=== PATIENT | female | born 1995 | race Caucasian/White ===

== ENCOUNTER 2017-01-22 08:33 | Emergency (ER) | payer SELFPAY ==
[2017-01-22 08:51] VITALS: BP 113/71
--- NOTE | 2017-01-22 09:05 | UC ---
Complaint Female HPI - HPI Summary HPI Summary: 21 female presents with complaints of urinary frequency, urgency and blood in urine that has been ongoing for the past 2-3 days and seemed to worsening today. Has not been swimming. Has had UTI's in the past. Admits to lower abdominal pressure, discomfort and bloating. Denies back pain, nausea, vomiting , and fever/chills. Has not taken any medications. Denies any other PMHx. Denies genitalia symptoms. Denies . LMP: 01/15/17. Currently taking OCP. - History Of Current Complaint Chief Complaint: UCGU Stated Complaint: URINARY COMPLAINT Time Seen by Provider: 01/22/17 08:51 Hx Obtained From: Patient Hx Last Menstrual Period: 01/15/17 Onset/Duration: Sudden Onset, Lasting Days - 2-3, Still Present Timing: Intermittent - upon urination Severity Initially: Mild Severity Currently: Moderate Pain Intensity: 7 Pain Scale Used: 0-10 Numeric - pressure Radiates to: none Character: Dull - pressure Aggravating Factor(s): Urination Alleviating Factor(s): Nothing Associated Signs And Symptoms: Negative: Fever, Back Pain, Vaginal Bleeding/ Discharge, Vaginal Discharge, Nausea - Allergies/Home Medications Allergies/Adverse Reactions: Allergies Allergy/AdvReac Type Severity Reaction Status Date / Time No Known Allergies Allergy Verified 01/22/17 08:51 PMH/Surg Hx/FS Hx/Imm Hx - Additional Past Medical History Additional PMH: Denies diabetes, HTN and asthma. No known PMHx. Currently taking OCP. - Surgical History Surgical History: Yes Surgery Procedure, Year, and Place: [facility] - Family History Known Family History: Positive: None - Social History Alcohol Use: None Substance Use Type: None Smoking Status (MU): Never Smoked Tobacco - Immunization History Vaccination Up to Date: Yes Review of Systems Constitutional: Negative Skin: Negative Respiratory: Negative Cardiovascular: Negative Gastrointestinal: Abdominal Pain - "suprapubic pressure/bloating" Genitourinary: Dysuria, Hematuria, Frequency, Urgency, Other - hematuria All Other Systems Reviewed And Are Negative: Yes Physical Exam Triage Information Reviewed: Yes Appearance: Well-Appearing, No Pain Distress, Well-Nourished Vital Signs: Initial Vital Signs Temp 98.3 F 01/22/17 08:46 Pulse 68 01/22/17 08:46 Resp 14 01/22/17 08:46 BP 113/71 01/22/17 08:46 Pulse Ox 100 01/22/17 08:46 Vital Signs Reviewed: Yes Eyes: Positive: Conjunctiva Clear ENT: Positive: Normal ENT inspection, Hearing grossly normal Neck: Positive: Supple, Nontender Respiratory: Positive: Chest non-tender, Lungs clear, Normal breath sounds, No respiratory distress, No accessory muscle use. Negative: Crackles, Rhonchi, Stridor, Wheezing Cardiovascular: Positive: RRR, No Murmur, Pulses Normal, Brisk Capillary Refill Abdomen Description: Positive: Nontender, No Organomegaly, Soft. Negative: Bruit, CVA Tenderness (R), CVA Tenderness (L), Distended, Guarding, McBurney's Point Tenderness, Peritoneal Signs, Pulsatile Mass Bowel Sounds: Positive: Present Musculoskeletal: Positive: Strength Intact, ROM Intact, No Edema Neurological: Positive: Alert Psychological Exam: Normal Skin Exam: Normal Complaint Female Dx - Course Course Of Treatment: urinalysis obtained and positive for nitrate, luek esterase and blood. will be cultured. given pyridium for discomfort and bactrim. aware of worsening signs and symptoms. drink plenty of fluids. good hygiene, discussed urinating after intercourse. denied pregnany and genitalia symptoms so pelvic exam deferred. Follow up PCP. - Differential Dx/Diagnosis Differential Diagnosis/HQI/PQRI: Sexually Transmitted Disease, Ureteral Stone, Urinary Tract Infection, Other Provider Diagnoses: UTI Discharge - Discharge Plan Condition: Stable Disposition: HOME Prescriptions: Phenazopyridine TAB* [Pyridium 100 mg TAB*] 200 mg PO TID #12 tab Sulfamethox/Trimethoprim DS* [Bactrim DS 800/160 TAB*] 1 tab PO BID #10 tab Patient Education Materials: Urinary Tract Infection in Women (ED) Referrals: Non Staff,Doctor [Primary Care Provider] - Additional Instructions: Take prescribed antibiotic as directed. You may discontinue use if your symptoms have improved after 3 days. If symptoms persist please continue all 5 days. If there is a better antibiotic, you will be called and it will be changed pending culture results. Take Pyridium for bladder discomfort. Recommend taking after meals. This may make your urine turn an orange, neon color, this is normal. Drink plenty of fluids and maintain good hygiene. Follow up with PCP. If symptoms worsen such as fever/chills, increasing abdominal pain, back pain, worsening symptoms and feeling ill please return promptly.
== END 2017-01-22 09:25 | disposition home or self-care (01) ==
LOC: UCCORT 08:33
DX: N39.0 Urinary tract infection, site not specified (principal); R31.9 Hematuria, unspecified; Z87.440 Personal history of urinary (tract) infections
CPT/HCPCS: 81003; 87077; 87086; 87186; 99212; G0463

== ENCOUNTER 2017-02-02 07:50 | Emergency (ER) | payer BC, OTHER ==
[2017-02-02 08:10] VITALS: BP 106/66
--- NOTE | 2017-02-02 08:18 | UC ---
Complaint Female HPI - HPI Summary HPI Summary: burning with urination x 2 days was seen here at the urgent care 10 days ago was treated for uti with bactrim dc sx returned 2 days ago with burning on urination , frequency , no fever, no chills, no flank pain - History Of Current Complaint Chief Complaint: UCGU Stated Complaint: URINARY COMPLAINT Time Seen by Provider: 02/02/17 07:55 Hx Obtained From: Patient Hx Last Menstrual Period: 01/15/17 Onset/Duration: Gradual Onset, Lasting Days - 2, Still Present Timing: Constant Severity Initially: Moderate Severity Currently: Moderate Character: Burning Aggravating Factor(s): Urination Alleviating Factor(s): Nothing Associated Signs And Symptoms: Negative: Fever, Back Pain, Vaginal Bleeding/ Discharge, Vaginal Discharge, Nausea, Vomiting(# Of Episodes =), Genital Swelling, Genital Blisters - Allergies/Home Medications Allergies/Adverse Reactions: Allergies Allergy/AdvReac Type Severity Reaction Status Date / Time No Known Allergies Allergy Verified 02/02/17 08:05 PMH/Surg Hx/FS Hx/Imm Hx Previously Healthy: Yes - Surgical History Surgical History: Yes Surgery Procedure, Year, and Place: [facility] - Family History Known Family History: Positive: None Negative: Diabetes - Social History Alcohol Use: None Substance Use Type: None Smoking Status (MU): Never Smoked Tobacco - Immunization History Vaccination Up to Date: Yes Review of Systems Constitutional: Negative Skin: Negative Eyes: Negative ENT: Negative Respiratory: Negative Cardiovascular: Negative Gastrointestinal: Negative Genitourinary: Dysuria, Frequency All Other Systems Reviewed And Are Negative: Yes Physical Exam Triage Information Reviewed: Yes Appearance: Well-Appearing, No Pain Distress, Well-Nourished Vital Signs: Initial Vital Signs Temp 98.2 F 02/02/17 08:05 Pulse 57 02/02/17 08:05 Resp 14 02/02/17 08:05 BP 106/66 02/02/17 08:05 Pulse Ox 100 02/02/17 08:05 Vital Signs Reviewed: Yes Eyes: Positive: Conjunctiva Clear ENT: Positive: Normal ENT inspection, Hearing grossly normal, Pharynx normal Neck: Positive: Supple, Nontender, No Lymphadenopathy Respiratory: Positive: Chest non-tender, Lungs clear, Normal breath sounds Cardiovascular: Positive: RRR, No Murmur, Pulses Normal Abdomen Description: Positive: Nontender, Soft. Negative: CVA Tenderness (R), CVA Tenderness (L), Distended, Guarding Bowel Sounds: Positive: Present Complaint Female Dx - Differential Dx/Diagnosis Provider Diagnoses: UTI Discharge - Discharge Plan Condition: Stable Disposition: HOME Prescriptions: Sulfamethox/Trimethoprim DS* [Bactrim DS 800/160 TAB*] 1 tab PO BID #14 tab Patient Education Materials: Urinary Tract Infection in Women (ED) Referrals: Non Staff,Doctor [Primary Care Provider] - If Needed
== END 2017-02-02 08:36 | disposition home or self-care (01) ==
LOC: UCCORT 07:50
DX: N39.0 Urinary tract infection, site not specified (principal)
CPT/HCPCS: 81003; 87086; 99212; G0463

== ENCOUNTER 2017-10-11 09:11 | Emergency (ER) | payer BC ==
[2017-10-11 09:41] VITALS: BP 140/64
--- NOTE | 2017-10-11 10:05 | UC ---
Throat Pain/Nasal Shaun HPI - HPI Summary HPI Summary: FEVER X 3 WEEKS + COUGH , SORE THROAT, NASAL CONGESTION + VOMITING, DIARRHEA , MILD ABDOMINAL PAIN FATIGUE, BODY ACHES WAS SEEN BY HER PCP / R/O UTIS AND KIDNEY INFECTION - History of Current Complaint Chief Complaint: UCGeneralIllness Stated Complaint: FLU SYMPTOMS Time Seen by Provider: 10/11/17 09:49 Hx Obtained From: Patient Hx Last Menstrual Period: 10/01/17 ?: No Onset/Duration: Gradual Onset, Lasting Weeks - 3, Still Present Severity: Severe Pain Intensity: 7 Cough: Nonproductive Associated Signs & Symptoms: Positive: Nasal Discharge, Fever. Negative: Drooling, Wheezing, Hoarseness, Sinus Discomfort, Rash - Allergies/Home Medications Allergies/Adverse Reactions: Allergies Allergy/AdvReac Type Severity Reaction Status Date / Time Sulfa (Sulfonamide Allergy Anaphylatic Verified 10/11/17 09:27 Antibiotics) Shock Home Medications: Home Medications Cholecalciferol TAB* [Vitamin D TAB*] 1,000 unit PO DAILY 10/11/17 [History Confirmed 10/11/17] Naproxen Sodium [Aleve] 440 mg PO DAILY PRN 10/11/17 [History Confirmed 10/11/17 ] PMH/Surg Hx/FS Hx/Imm Hx - Additional Past Medical History Additional PMH: UTIS - Surgical History Surgical History: Yes Surgery Procedure, Year, and Place: [facility] - Family History Known Family History: Positive: None Negative: Diabetes - Social History Alcohol Use: None Substance Use Type: None Smoking Status (MU): Never Smoked Tobacco - Immunization History Vaccination Up to Date: Yes Review of Systems Constitutional: Fever, Chills, Fatigue Skin: Negative Eyes: Negative ENT: Sore Throat, Nasal Discharge Respiratory: Cough Cardiovascular: Negative Gastrointestinal: Abdominal Pain, Vomiting, Diarrhea, Nausea Genitourinary: Negative Motor: Negative Is Patient Immunocompromised?: No All Other Systems Reviewed And Are Negative: Yes Physical Exam Triage Information Reviewed: Yes Appearance: Well-Appearing, No Pain Distress, Well-Nourished Vital Signs: Initial Vital Signs Temp 99.6 F 10/11/17 09:29 Pulse 58 10/11/17 09:29 Resp 22 10/11/17 09:29 BP 140/64 10/11/17 09:29 Pulse Ox 100 10/11/17 09:29 Vital Signs Reviewed: Yes Eyes: Positive: Conjunctiva Clear ENT: Positive: Normal ENT inspection, Hearing grossly normal, Pharynx normal Neck exam: Normal Neck: Positive: Supple, Nontender, No Lymphadenopathy Respiratory: Positive: Chest non-tender, Lungs clear, Normal breath sounds, No respiratory distress Cardiovascular: Positive: RRR, No Murmur, Pulses Normal Abdomen Description: Positive: Nontender, Soft. Negative: CVA Tenderness (R), CVA Tenderness (L), Distended, Guarding Bowel Sounds: Positive: Present Musculoskeletal Exam: Normal Musculoskeletal: Positive: Strength Intact, ROM Intact, No Edema Skin Exam: Normal Throat Pain/Nasal Course/Dx - Differential Dx/Diagnosis Provider Diagnoses: VIRAL ILLNESS Discharge - Discharge Plan Condition: Stable Disposition: HOME Patient Education Materials: Viral Syndrome (ED) Referrals: Non Staff,Doctor [Primary Care Provider] - 5 Days
== END 2017-10-11 10:55 | disposition home or self-care (01) ==
LOC: UCCORT 09:11
DX: B34.9 Viral infection, unspecified (principal)
CPT/HCPCS: 87502; 99211; G0463